=== PATIENT | male | born 1975 | race Caucasian/White ===

== ENCOUNTER 2024-04-21 16:28 | Emergency (ER) | payer OTHER ==
[~2024-04-21] VITALS: Ht 167.6 cm; Wt 115.2 kg
[~2024-04-21 16:28] MED LIST: DAYPRO600 M1 PO; ROBAXIN750 MG PO; SKELAXIN800 MG PO; ZITHROMAX Z PA250 MG PO
== END 2024-04-21 19:24 | disposition home or self-care (01) ==
LOC: ED 16:28
DX: S83.91XA Sprain of unspecified site of right knee, initial encounter (principal); Z91.041 Radiographic dye allergy status; Z88.8 Allergy status to other drugs, medicaments and biological substances; Z79.899 Other long term (current) drug therapy; Z79.2 Long term (current) use of antibiotics; X50.1XXA Overexertion from prolonged static or awkward postures, initial encounter; Y93.89 Activity, other specified; Y92.89 Other specified places as the place of occurrence of the external cause; Y99.8 Other external cause status

== ENCOUNTER 2024-07-01 05:05 | Emergency (ER) | payer OTHER ==
[~2024-07-01] VITALS: Ht 167.6 cm; Wt 131.5 kg
== END 2024-07-01 06:07 | disposition home or self-care (01) ==
LOC: ED 05:05
DX: M25.511 Pain in right shoulder (principal); E11.9 Type 2 diabetes mellitus without complications; I10 Essential (primary) hypertension; Z91.041 Radiographic dye allergy status; Z88.8 Allergy status to other drugs, medicaments and biological substances; Z87.891 Personal history of nicotine dependence

== ENCOUNTER → 2024-10-12 | Outpatient (CLI) | payer BC ==
[2024-10-12 09:28] LABS: BASO # 0.1 10*3/uL (0.0-0.1); BASO % 0.6 % (0.0-1.0); EOS # 0.2 10*3/uL (0.0-0.4); HEMATOCRIT 48.7 % (42.0-52.0); MEAN CELL VOLUME 89.9 fl (80.0-94.0); MEAN CORPUSCULAR HGB 31.7 pg (27.0-31.0); MEAN CORPUSCULAR HGB CONC 35.3 g/dl (33.0-37.0); MEAN PLATELET VOLUME 12.7 fl (9.6-12.3); MONO # 0.6 10*3/uL (0.1-1.0); MONO % 7.1 % (3.0-9.0); NEUT # 4.1 10*3/uL (2.3-7.9); NEUT % 48.3 % (47.0-73.0); PLATELET COUNT AUTOMATED 193 10*3/uL (130-400); RED BLOOD COUNT 5.42 10*6/uL (4.50-5.90); RED CELL DISTRI WIDTH 12.4 % (0-14.5); RETICULOCYTE % 2.06 % (0.50-2.50); WHITE BLOOD COUNT 8.5 10*3/uL (4.8-10.8)
[2024-10-12 09:35] LABS: BILIRUBIN Negative (Negative); BLOOD Negative (Negative); CLARITY Clear (Clear); COLOR Yellow (Yellow); GLUCOSE 3+ (Negative); KETONE Negative (Negative); LEUKO ESTERASE Negative (Negative); NITRITE Negative (Negative); SPECIFIC GRAVITY 1.025 (1.001-1.030); UROBILINOGEN 0.2 E.U./dl (0.0-1.0)
[2024-10-12 09:51] LABS: ALKALINE PHOSPHATASE 148 U/L (46-116); BUN 13 mg/dl (9-23); CHLORIDE 104 mmol/L (98-107); CHOLESTEROL 162 mg/dL (<200); GAMMA GLUTAMYL TRANSPEPTIDASE 56 U/L (0-73); POTASSIUM 3.9 mmol/L (3.4-5.1); SGPT/ALT 26 U/L (5-49); T3 UPTAKE 28.1 % (22.4-36.7); THYROXINE (T4) TOTAL 7.9 ug/dl (4.5-10.9); TOTAL PROTEIN 7.5 gm/dL (6.0-8.0); TRIGLYCERIDES 573 mg/dl (<150)
[2024-10-12 10:30] LABS: VITAMIN D, 25-HYDROXY 16.4 ng/mL (30-100)
[2024-10-12 10:43] LABS: EPITHELIAL CELLS 0-2; RBC 0-2 rbc/hpf (0-2)
== END | disposition home or self-care (01) ==
LOC: LAB 08:45
PROVIDERS: ATTEND Family Medicine
DX: J43.8 Other emphysema (principal); R06.02 Shortness of breath; E78.5 Hyperlipidemia, unspecified; R53.83 Other fatigue; R79.89 Other specified abnormal findings of blood chemistry; E10.9 Type 1 diabetes mellitus without complications; E55.9 Vitamin D deficiency, unspecified

== ENCOUNTER 2025-03-24 04:21 | Emergency (ER) | payer OTHER, BC ==
[~2025-03-24] VITALS: Ht 167.6 cm; Wt 115.7 kg
[2025-03-24] MEDS ORDERED: AMLODIPINE BESY10 MG PO (04:39)
[2025-03-24] MEDS ORDERED: LOSARTAN POTASS50 M1 PO (04:40)
[2025-03-24] MEDS ORDERED: Dexamethasone Sodium Phospha 20 MG/5 ML VIAL IM ONE (04:40)
[2025-03-24] MEDS ORDERED: GEMFIBROZIL600 MG PO (04:40)
[2025-03-24] MEDS ORDERED: METFORMIN HYDR500 MG PO (04:40)
[2025-03-24] MEDS ORDERED: Ketorolac Tromethamine 60 MG/2 ML VIAL IM ONE (04:40)
[2025-03-24] MEDS ORDERED: MELOXICAM15 MG PO (06:26)
[2025-03-24] MEDS ORDERED: CYCLOBENZAPRINE5 M3 PO (06:26)
== END 2025-03-24 06:33 | disposition home or self-care (01) ==
LOC: ED 04:21
DX: M62.830 Muscle spasm of back (principal); M54.50 Low back pain, unspecified; Z91.041 Radiographic dye allergy status; Z88.8 Allergy status to other drugs, medicaments and biological substances; Z79.899 Other long term (current) drug therapy; Z79.84 Long term (current) use of oral hypoglycemic drugs

== ENCOUNTER → 2025-05-08 | Outpatient (CLI) | payer BC ==
[~2025-05-08] MED LIST changes: +AMLODIPINE BESY10 MG PO; +CYCLOBENZAPRINE5 M3 PO; +GEMFIBROZIL600 MG PO; +LOSARTAN POTASS50 M1 PO; +MELOXICAM15 MG PO; +METFORMIN HYDR500 MG PO
== END | disposition home or self-care (01) ==
LOC: US 12:31
PROVIDERS: ATTEND Surgery
DX: N43.2 Other hydrocele (principal)

== ENCOUNTER → 2025-05-16 | Outpatient (CLI) | payer BC ==
[2025-05-16 09:32] LABS: HEMATOCRIT 47.7 % (42.0-52.0); MEAN CORPUSCULAR HGB CONC 33.3 g/dl (33.0-37.0); MEAN PLATELET VOLUME 12.6 fl (9.6-12.3); PLATELET COUNT AUTOMATED 205 10*3/uL (130-400); RED BLOOD COUNT 5.13 10*6/uL (4.50-5.90); RED CELL DISTRI WIDTH 12.4 % (0-14.5); RETICULOCYTE % 1.89 % (0.50-2.50); WHITE BLOOD COUNT 11.8 10*3/uL (4.8-10.8)
[2025-05-16 09:42] LABS: BILIRUBIN Negative (Negative); BLOOD Negative (Negative); CLARITY Clear (Clear); COLOR Yellow (Yellow); GLUCOSE 3+ (Negative); KETONE Negative (Negative); LEUKO ESTERASE Negative (Negative); NITRITE Negative (Negative); PH 5.5 (4.5-8.0); SPECIFIC GRAVITY >= 1.030 (1.001-1.030); UROBILINOGEN 0.2 E.U./dl (0.0-1.0)
[2025-05-16 10:04] LABS: ALKALINE PHOSPHATASE 99 U/L (46-116); BUN 15 mg/dl (9-23); CHLORIDE 103 mmol/L (98-107); CHOLESTEROL 172 mg/dL (<200); GAMMA GLUTAMYL TRANSPEPTIDASE 39 U/L (0-73); LDL CHOLESTEROL 76 mg/dL (9-159); POTASSIUM 4.1 mmol/L (3.4-5.1); SGPT/ALT 27 U/L (5-49); T3 UPTAKE 27.9 % (22.4-36.7); THYROXINE (T4) TOTAL 6.4 ug/dl (4.5-10.9); TOTAL PROTEIN 7.4 gm/dL (6.0-8.0); TRIGLYCERIDES 328 mg/dl (<150); VITAMIN D, 25-HYDROXY 16.7 ng/mL (30-100)
[2025-05-16 10:18] LABS: MANUAL DIFF REFLEX YES
[2025-05-16 10:22] LABS: PLATELET SUFFICIENCY NORMAL (NORMAL); TOTAL CELLS COUNTED 100 #CELLS
== END | disposition home or self-care (01) ==
LOC: LAB 08:53
PROVIDERS: ATTEND Family Medicine
DX: E55.9 Vitamin D deficiency, unspecified (principal); E78.5 Hyperlipidemia, unspecified; R53.83 Other fatigue; R79.89 Other specified abnormal findings of blood chemistry